=== PATIENT | male | born 1990 | race Caucasian/White ===

== ENCOUNTER 2018-10-02 19:46 | Emergency (ER) | payer SELFPAY ==
[~2018-10-02] VITALS: Ht 175.3 cm; Wt 122.7 kg
[2018-10-02 20:03] VITALS: BP 139/90
== END 2018-10-02 20:32 | disposition home or self-care (01) ==
LOC: EMS 19:47
DX: S09.90XA Unspecified injury of head, initial encounter (principal); F19.10 Other psychoactive substance abuse, uncomplicated; X58.XXXA Exposure to other specified factors, initial encounter; Y93.89 Activity, other specified; Y92.89 Other specified places as the place of occurrence of the external cause; Y99.8 Other external cause status

== ENCOUNTER 2018-10-02 23:47 | Emergency (ER) | payer SELFPAY ==
[~2018-10-02] VITALS: Ht 185.4 cm; Wt 109.0 kg
[2018-10-03 04:15] VITALS: BP 129/87
== END 2018-10-03 05:10 | disposition home or self-care (01) ==
LOC: EMS 23:57
DX: R51 Headache (principal); F17.210 Nicotine dependence, cigarettes, uncomplicated
CPT/HCPCS: 70450